=== PATIENT | male | born 1960 | race Caucasian/White ===

== ENCOUNTER → 2021-01-24 | Outpatient (CLI) | payer OTHER ==
--- NOTE | 2021-01-26 17:36 | REPVR ---
PROCEDURE INFORMATION: Exam: MR Lumbar Spine Without Contrast Exam date and time: 01/24/2021 4:13 PM Age: 60 years old Clinical indication: Low back pain; Additional info: Worsening radiculopathy TECHNIQUE: Imaging protocol: Multiplanar magnetic resonance images of the lumbar spine without intravenous contrast. COMPARISON: No relevant prior studies available. FINDINGS: Vertebrae: There is a transitional lumbosacral vertebra consistent with a partially lumbarlized S1. There is a diminutive S1-S2 disc space. There is 4 mm retrolisthesis of L2 upon L3 and L 4 upon L5. There is 3 mm of anterolisthesis of L5 upon S1. Disc spaces: There is loss of T2 signal and disc space height throughout the intervertebral disc spaces, related to degenerative disc disease. Spinal cord: Normal signal. No cord compression. The conus extends to L1. L1-L2: No significant disc disease. There are mild facet joint degenerative changes. No significant spinal canal stenosis. No neural foraminal stenosis. L2-L3: There is a diffuse bulge with a caudally directed leftward herniation and extruded free fragment medial to the left L3 pedicle which causes mass effect on the left L3 root in the entry zone. There are mild to moderate facet joint degenerative changes and ligament flavum hypertrophy. No significant spinal canal stenosis. No neural foraminal stenosis. L3-L4: There is a diffuse bulge which flattens the sac with a small central annular fissure. There are mild facet joint degenerative changes ligamentum flavum hypertrophy. No significant spinal canal stenosis. No neural foraminal stenosis. L4-L5: There is a diffuse bulge which extends into the right neural foramina to the right L5 root. There is facet joint degenerative changes resulting in bilateral lateral recess stenosis and right neural foraminal stenosis. L5-S1: No significant disc disease. No significant spinal canal stenosis. No neural foraminal stenosis. S1-S2: There is no disc bulge or herniation. Sacrum/coccyx: There is a transitional lumbosacral vertebra consistent with a partially lumbarlized S1. There is a diminutive S1-S2 disc space. Soft tissues: Unremarkable. Gallbladder and bile ducts: There may be gallstones present. Kidneys and ureters: There is partial visualization of a 1.5 cm left renal cyst. IMPRESSION: 1. At L2-L3, there is a diffuse bulge associated with a caudally directed leftward herniation and extruded free fragment which extends medial to the left L3 pedicle, a finding expected result left L3 radiculopathy. 2. At L5-S1, there is a diffuse bulge which extends into the right neural foramina to the right L5 root, and is associated with facet joint degenerative changes resulting in bilateral lateral recess stenosis and right neural foraminal stenosis. The combination of the right foraminal findings may result in a right L5 radiculopathy. 3. Question gallstones. Electronically signed by: Mathieu Velez On 01/26/2021 17:35:40 PM
== END ==
LOC: M PLARAD 12:32
PROVIDERS: ATTEND Nurse Practitioner Family
DX: M51.16 Intervertebral disc disorders with radiculopathy, lumbar region (principal)

== ENCOUNTER → 2021-08-08 | Outpatient (CLI) | payer OTHER | LOC: M PAIN 09:00 | PROVIDERS: ATTEND Nurse Practitioner Family | DX: M51.16 Intervertebral disc disorders with radiculopathy, lumbar region (principal); I48.91 Unspecified atrial fibrillation; E11.9 Type 2 diabetes mellitus without complications; I10 Essential (primary) hypertension; E78.5 Hyperlipidemia, unspecified; Z79.1 Long term (current) use of non-steroidal anti-inflammatories (NSAID); Z79.899 Other long term (current) drug therapy; Z88.8 Allergy status to other drugs, medicaments and biological substances ==

== ENCOUNTER → 2021-09-15 | Outpatient (CLI) | payer OTHER | LOC: M PAIN 11:45 | PROVIDERS: ATTEND Nurse Practitioner Family | DX: M51.16 Intervertebral disc disorders with radiculopathy, lumbar region (principal); I48.91 Unspecified atrial fibrillation; E11.69 Type 2 diabetes mellitus with other specified complication; I10 Essential (primary) hypertension; E78.5 Hyperlipidemia, unspecified; Z87.891 Personal history of nicotine dependence; Z79.1 Long term (current) use of non-steroidal anti-inflammatories (NSAID); Z79.899 Other long term (current) drug therapy; Z88.8 Allergy status to other drugs, medicaments and biological substances ==

== ENCOUNTER → 2022-02-17 | Outpatient (CLI) | payer OTHER | LOC: M PAIN 14:45 | PROVIDERS: ATTEND Nurse Practitioner Family | DX: M51.16 Intervertebral disc disorders with radiculopathy, lumbar region (principal); G89.29 Other chronic pain; E11.9 Type 2 diabetes mellitus without complications; I10 Essential (primary) hypertension; Z87.891 Personal history of nicotine dependence; Z88.8 Allergy status to other drugs, medicaments and biological substances; Z79.82 Long term (current) use of aspirin; Z79.899 Other long term (current) drug therapy ==

== ENCOUNTER → 2022-09-07 | Outpatient (REF) | LOC: M SLEEP HO 10:00 | PROVIDERS: ATTEND Physician Assistant | DX: G47.33 Obstructive sleep apnea (adult) (pediatric) (principal) ==

== ENCOUNTER → 2022-10-23 | Outpatient (CLI) | payer OTHER ==
[~2022-10-23] MED LIST: E-Z-GAS II EFFERVESCENT PACKET (SODIUM BICARB./CITRIC ACID/SIMETHICONE) As Ordered ONE; E-Z-HD 98% w/w 340GM SUSP BTL As Ordered ONE; E-Z-PAQUE 96% w/w SUSP 176GM BTL As Ordered ONE
== END ==
LOC: M RAD 09:10
PROVIDERS: ATTEND Physician Assistant
DX: R13.10 Dysphagia, unspecified (principal)

== ENCOUNTER → 2023-05-10 | Outpatient (REF) | payer OTHER | LOC: M SFHCRHEU 16:17 | PROVIDERS: ATTEND Internal Medicine | DX: R76.8 Other specified abnormal immunological findings in serum (principal); R79.82 Elevated C-reactive protein (CRP); Z53.9 Procedure and treatment not carried out, unspecified reason ==